=== PATIENT | female | born 1965 | race Caucasian/White ===

== ENCOUNTER 2016-06-13 20:09 | Emergency (ER) | payer OTHER ==
[2016-06-13 20:16] VITALS: BP 147/100; PULSE 89; TEMP 97.9; BMI 30.9
[2016-06-13 20:20] LABS: PH,URINE 5.5 (4.5-8); URINE APPEARANCE Cloudy; URINE BILIRUBIN Negative (NEGATIVE); URINE GLUCOSE (UA) Trace (NEGATIVE); URINE KETONE Trace (NEGATIVE); URINE NITRITE Positive (NEGATIVE); URINE PROTEIN Negative (NEGATIVE); URINE UROBILINOGEN 1.0 E.U/dl (0.2-1.0)
--- NOTE | 2016-06-13 20:25 | PDOC ---
History of Present Illness - History of Present Illness Initial Comments: 06/13/16 21:05 The patient is a 51 year old female with no past medical hx of who presents to the ED complaining of painful urination for two weeks. She notes she has associated foul smelling urine and hematuria. Patient states she has had these reoccurring symptoms her entire life, but they have been worse the past two weeks. She has no further complaints at this time. The patient denies daily medication. The patient denies any chest pain, SOB The patient denies any nausea, vomiting, diarrhea Social: denies any tobacco or alcohol use Allergies: Motrin (stomach pain) Surgery: Hysterectomy (5 years ago), cholecystectomy (10 years ago) PCP: N/A <Elizabeth Linares - Last Filed: 06/13/16 21:08> <Gildardo Vazquez - Last Filed: 06/13/16 21:23> - General Chief Complaint: Urinary Problem Stated Complaint: UTI Past History <Elizabeth Linares - Last Filed: 06/13/16 21:08> - Past Medical History Other medical history: DENIES - Psycho/Social/Smoking Cessation Hx Anxiety: No Suicidal Ideation: No Smoking History: Never smoked Hx Alcohol Use: No Drug/Substance Use Hx: No Substance Use Type: None <Gildardo Vazquez - Last Filed: 06/13/16 21:23> - Past Medical History Allergies/Adverse Reactions: Allergies Allergy/AdvReac Type Severity Reaction Status Date / Time ibuprofen AdvReac Nausea Verified 05/13/16 20:19 Home Medications: Ambulatory Orders Cefpodoxime Proxetil [Vantin (Nf) -] 100 mg PO BID #20 tablet 06/13/16 Phenazopyridine HCl [Pyridium] 200 mg PO TID #9 tablet 06/13/16 Review of Systems - Review of Systems Able to Perform ROS?: Yes ([place] [employer] ) Comments:: 06/13/16 21:07 GENERAL/CONSTITUTIONAL: No fever or chills. No weakness. HEAD, EYES, EARS, NOSE AND THROAT: No change in vision. No ear pain or discharge. No sore throat. CARDIOVASCULAR: No chest pain or shortness of breath. RESPIRATORY: No cough, wheezing, or hemoptysis. GASTROINTESTINAL: No nausea, vomiting, diarrhea or constipation. GENITOURINARY: + Dysuria, foul smelling urine, hematuria. MUSCULOSKELETAL: No joint or muscle swelling or pain. No neck or back pain. SKIN: No rash NEUROLOGIC: No headache, vertigo, loss of consciousness, or change in strength/ sensation. ENDOCRINE: No increased thirst. No abnormal weight change. HEMATOLOGIC/LYMPHATIC: No anemia, easy bleeding, or history of blood clots. ALLERGIC/IMMUNOLOGIC: No hives or skin allergy. <Elizabeth Linares - Last Filed: 06/13/16 21:08> *Physical Exam - Vital Signs Last Vital Signs Temp Pulse Resp BP Pulse Ox 97.9 F 89 16 147/100 98 06/13/16 20:15 06/13/16 20:15 06/13/16 20:15 06/13/16 20:15 06/13/16 20:15 - Physical Exam Comments: 06/13/16 21:07 GENERAL: Awake, alert, and fully oriented, in no acute distress HEAD: No signs of trauma EYES: PERRLA, EOMI, sclera anicteric, conjunctiva clear ENT: Auricles normal inspection, hearing grossly normal, nares patent, oropharynx clear without exudates. Moist mucosa NECK: Normal ROM, supple, no lymphadenopathy, JVD, or masses LUNGS: Breath sounds equal, clear to auscultation bilaterally. No wheezes, and no crackles HEART: Regular rate and rhythm, normal S1 and S2, no murmurs, rubs or gallops ABDOMEN: Soft, nontender, normoactive bowel sounds. No guarding, no rebound. No masses EXTREMITIES: Normal range of motion, no edema. No clubbing or cyanosis. No cords, erythema, or tenderness NEUROLOGICAL: Cranial nerves II through XII grossly intact. Normal speech, normal gait SKIN: Warm, Dry, normal turgor, no rashes or lesions noted. <Elizabeth Linares - Last Filed: 06/13/16 21:08> - Vital Signs Last Vital Signs Temp Pulse Resp BP Pulse Ox 97.9 F 89 16 147/100 98 06/13/16 20:15 06/13/16 20:15 06/13/16 20:15 06/13/16 20:15 06/13/16 20:15 <Gildardo Vazquez - Last Filed: 06/13/16 21:23> ED Treatment Course - ADDITIONAL ORDERS Additional order review: Laboratory Results 06/13/16 06/13/16 20:15 20:10 Urine Color [place] Urine Appearance Cloudy Urine pH 5.5 Ur Specific [place] 1.015 Urine Protein Negative Urine Glucose (UA) Trace Urine Ketones Trace Urine Blood Trace H Urine Nitrite Positive Urine Bilirubin Negative Urine Urobilinogen 1.0 e.u/dl Ur Leukocyte Esterase 3+ H Urine RBC 0-3 Urine WBC 20-30 Ur Epithelial Cells 2+ Urine Bacteria 2+ Urine HCG, Qual Negative <Elizabeth Linares - Last Filed: 06/13/16 21:08> *DC/Admit/Observation/Transfer - Attestations Scribe Attestion: 06/13/16 21:08 Documentation prepared by Elizabeth Linares, acting as medical technologist chief for Gildardo Vazquez MD/. <Elizabeth Linares - Last Filed: 06/13/16 21:08> - Discharge Dispostion Admit: No - Attestations Physician Attestion: 06/13/16 20:25 I, Dr. Gildardo Vazquez, attest that this document has been prepared under my direction and personally reviewed by me in its entirety. I further attest, that it accurately reflects all work, treatment, procedures and medical decision -making performed by me. <Gildardo Vazquez - Last Filed: 06/13/16 21:23> Diagnosis at time of Disposition: Urinary tract infection Qualifiers: Urinary tract infection type: acute cystitis Hematuria presence: with hematuria Qualified Code(s): N30.01 - Acute cystitis with hematuria - Discharge Dispostion Disposition: HOME Condition at time of disposition: Stable - Prescriptions Prescriptions: Phenazopyridine HCl [Pyridium] 200 mg PO TID #9 tablet Cefpodoxime Proxetil [Vantin (Nf) -] 100 mg PO BID #20 tablet - Patient Instructions Printed Discharge Instructions: DI for Urinary Tract Infection (UTI) Additional Instructions: It was a pleasure to care for you..... Hope you feel better soon. Diogo- Dr. Gildardo Vazquez Print Language: LAO
[2016-06-13 20:29] LABS: URINE BLOOD TRACE (NEGATIVE); URINE COLOR ORANGE; URINE LEUK ESTERASE 3+ (NEGATIVE)
[2016-06-13 20:38] LABS: URINE BACTERIA 2+ /hpf (NEGATIVE); URINE RBC 0-3 /hpf (0-3); URINE WBC 20-30 (3-5)
[2016-06-13] MEDS ORDERED: PHENAZOPYRIDINE HCL 100 MG TABLET (FP) PO ONE (21:16)
[2016-06-13] MEDS ORDERED: CEFPODOXIME PROXETIL 100 MG TABLET PO ONE (21:16)
[2016-06-13] MEDS ORDERED: PHENAZOPYRIDINE HCL 100 MG TABLET (FP) ONE (21:20)
[2016-06-13] MEDS ORDERED: CEPHALEXIN MONOHYDRATE 500 MG CAPSULE (UD) ONE (21:23)
[2016-06-13] MEDS ORDERED: CEPHALEXIN MONOHYDRATE 500 MG CAPSULE (UD) PO ONE (21:23)
== END 2016-06-13 21:33 | disposition home or self-care (01) ==
LOC: FER 20:09
DX: N30.01 Acute cystitis with hematuria (principal)
CPT/HCPCS: 81003; 81015; 84703; 87086; 87186; 99282-25

== ENCOUNTER 2017-05-07 16:25 | Emergency (ER) | payer OTHER ==
[2017-05-07 16:46] VITALS: BP 145/97; PULSE 83; TEMP 98.6; BMI 34.2
[2017-05-07 16:47] LABS: URINE BILIRUBIN Negative (NEGATIVE); URINE GLUCOSE (UA) Negative (NEGATIVE); URINE KETONE Negative (NEGATIVE); URINE NITRITE Negative (NEGATIVE); URINE PROTEIN Negative (NEGATIVE); URINE UROBILINOGEN 0.2 (0.2-1.0)
--- NOTE | 2017-05-07 16:47 | PDOC ---
History of Present Illness - General History Source: Patient - History of Present Illness Initial Comments: 05/07/17 16:54 The patient is a 51 year old female, with a significant past medical history of UTIs, who presents to the emergency department with, pain upon urination x1day. Patient reports the symptoms feel similar to previous UTIs experienced. She denies recent fevers, chills, headache or dizziness. She denies recent nausea, vomit, diarrhea or constipation. She denies recent frequency, urgency, foul smelling urine, or hematuria. She denies recent chest pain or shortness of breath. Allergies: Ibuprofen Past surgical history: Hysterectomy (5 years ago), cholecystectomy (10 years ago ) Social history: Nonsmoker. Denies EtOH use and recreational drug use. Primary Care Physician: Dr. Ignacio Alberto <Eleonora Mendez - Last Filed: 05/07/17 16:53> <Samira Bennett - Last Filed: 05/07/17 17:02> - General Chief Complaint: Urinary Problem Stated Complaint: PAIN ON URINATION Time Seen by Provider: 05/07/17 16:28 Past History <Eleonora Mendez - Last Filed: 05/07/17 16:53> - Past Medical History COPD: No Other medical history: DENIES - Surgical History Cholecystectomy: Yes - Suicide/Smoking/Psychosocial Hx Smoking History: Never smoked Have you smoked in the past 12 months: No Hx Alcohol Use: No Drug/Substance Use Hx: No Substance Use Type: None <Samira Bennett - Last Filed: 05/07/17 17:02> - Past Medical History Allergies/Adverse Reactions: Allergies Allergy/AdvReac Type Severity Reaction Status Date / Time ibuprofen AdvReac Nausea Verified 05/07/17 16:27 Home Medications: Ambulatory Orders Cephalexin Monohydrate [Keflex -] 500 mg PO BID #14 capsule 05/07/17 Review of Systems - Review of Systems Able to Perform ROS?: Yes Comments:: 05/07/17 16:54 GENERAL/CONSTITUTIONAL: No fever or chills. No weakness. HEAD, EYES, EARS, NOSE AND THROAT: No change in vision. No ear pain or discharge. No sore throat. CARDIOVASCULAR: No chest pain or shortness of breath. RESPIRATORY: No cough, wheezing, or hemoptysis. GASTROINTESTINAL: No nausea, vomiting, diarrhea or constipation. GENITOURINARY: +Pain upon urination. No frequency, or change in urination. MUSCULOSKELETAL: No joint or muscle swelling or pain. No neck or back pain. SKIN: No rash NEUROLOGIC: No headache, vertigo, loss of consciousness, or change in strength/ sensation. ENDOCRINE: No increased thirst. No abnormal weight change. HEMATOLOGIC/LYMPHATIC: No anemia, easy bleeding, or history of blood clots. ALLERGIC/IMMUNOLOGIC: No hives or skin allergy. All Other Systems: Reviewed and Negative <Eleonora Mendez - Last Filed: 05/07/17 16:53> *Physical Exam - Vital Signs Last Vital Signs Temp Pulse Resp BP Pulse Ox 98.6 F 83 18 145/97 96 05/07/17 16:25 05/07/17 16:25 05/07/17 16:25 05/07/17 16:25 05/07/17 16:25 - Physical Exam Comments: 05/07/17 16:54 GENERAL: Awake, alert, and fully oriented, in no acute distress HEAD: No signs of trauma EYES: PERRLA, EOMI, sclera anicteric, conjunctiva clear ENT: Auricles normal inspection, hearing grossly normal, nares patent, oropharynx clear without exudates. Moist mucosa NECK: Normal ROM, supple, no lymphadenopathy, JVD, or masses LUNGS: Breath sounds equal, clear to auscultation bilaterally. No wheezes, and no crackles HEART: Regular rate and rhythm, normal S1 and S2, no murmurs, rubs or gallops ABDOMEN: Soft, nontender, normoactive bowel sounds. No guarding, no rebound. No masses EXTREMITIES: Normal range of motion, no edema. No clubbing or cyanosis. No cords, erythema, or tenderness NEUROLOGICAL: Cranial nerves II through XII grossly intact. Normal speech, normal gait SKIN: Warm, Dry, normal turgor, no rashes or lesions noted. <DisahEleonora sim - Last Filed: 05/07/17 16:53> - Vital Signs Last Vital Signs Temp Pulse Resp BP Pulse Ox 98.6 F 83 18 145/97 96 05/07/17 16:25 05/07/17 16:25 05/07/17 16:25 05/07/17 16:25 05/07/17 16:25 <Samira Bennett - Last Filed: 05/07/17 17:02> ED Treatment Course - ADDITIONAL ORDERS Additional order review: Laboratory Results 05/07/17 16:30 Urine Color Yellow Urine Appearance Hazy Urine pH 6.0 Ur Specific [place] 1.015 Urine Protein Negative Urine Glucose (UA) Negative Urine Ketones Negative Urine Blood 2+ H Urine Nitrite Negative Urine Bilirubin Negative Urine Urobilinogen 0.2 Ur Leukocyte Esterase 3+ H <Eleonora Mendez - Last Filed: 05/07/17 16:53> Medical Decision Making - Medical Decision Making 05/07/17 17:02 Reviewed prior UCx results. Prior UTI was sensitive to cephalosporins. Will prescribe keflex. No signs of pyelonephritis. Stable for DC home. <Samira Bennett - Last Filed: 05/07/17 17:02> *DC/Admit/Observation/Transfer - Attestations Scribe Attestion: 05/07/17 16:55 Documentation prepared by Eleonora Mendez, acting as senior medical billing specialist for Samira Bennett MD. <Eleonora Mendez - Last Filed: 05/07/17 16:53> - Discharge Dispostion Admit: No <Samira Bennett - Last Filed: 05/07/17 17:02> Diagnosis at time of Disposition: UTI (urinary tract infection) Qualifiers: Urinary tract infection type: acute cystitis Hematuria presence: without hematuria Qualified Code(s): N30.00 - Acute cystitis without hematuria - Discharge Dispostion Disposition: HOME Condition at time of disposition: Stable - Prescriptions Prescriptions: Cephalexin Monohydrate [Keflex -] 500 mg PO BID #14 capsule - Referrals Referrals: Ignacio Alberto MD [Primary Care Provider] - - Patient Instructions - Post Discharge Activity
[2017-05-07 16:49] LABS: URINE APPEARANCE HAZY; URINE BLOOD 2+ (NEGATIVE); URINE COLOR YELLOW; URINE LEUK ESTERASE 3+ (NEGATIVE)
[2017-05-07 17:01] LABS: URINE BACTERIA FEW /hpf (NEGATIVE); URINE RBC 20-30 /hpf (0-3); URINE WBC 60-100 (0-5)
[2017-05-07] MEDS ORDERED: CEPHALEXIN MONOHYDRATE 500 MG CAPSULE (UD) PO ONE (17:01)
[2017-05-07] MEDS ORDERED: CEPHALEXIN MONOHYDRATE 500 MG CAPSULE (UD) ONE (17:10)
[2017-05-07] MEDS ORDERED: PHENAZOPYRIDINE HCL 100 MG TABLET (FP) ONE (17:14)
[2017-05-07] MEDS ORDERED: PHENAZOPYRIDINE HCL 100 MG TABLET (FP) PO ONE (17:14)
== END 2017-05-07 17:25 | disposition home or self-care (01) ==
LOC: SUPCPDRO 16:25 → FER 16:25
DX: N30.00 Acute cystitis without hematuria (principal); Z87.440 Personal history of urinary (tract) infections
CPT/HCPCS: 81003; 81015; 87086; 87186; 99283-25

== ENCOUNTER 2017-06-05 20:57 | Emergency (ER) | payer OTHER ==
[2017-06-05 21:10] VITALS: BP 134/88; PULSE 73; TEMP 98.3; BMI 31.7
--- NOTE | 2017-06-05 21:11 | PDOC ---
History of Present Illness - General History Source: Patient Exam Limitations: No Limitations - History of Present Illness Initial Comments: 06/05/17 21:45 The patient is a 52-year-old female, with a significant past medical history of UTI's, who presents to the ED with burning with urination for 3 the past three days. She denies any hematuria. She denies any back pain. She denies any nausea, vomiting, diarrhea, or abdominal pain. PAST MEDICAL HISTORY: no significant history PAST SURGICAL HISTORY: no significant history FAMILY HISTORY: no pertinent history HISTORY: Pt lives with family and is employed. MEDICATIONS: reviewed ALLERGIES: As per nursing notes Adult ROS General: No fevers or chills, no weakness, no weight loss HEENT: No change in vision. No sore throat,. No ear pain CardioVascular: No chest pain or shortness of breath Respiratory:No cough, or wheezing. Gastrointestinal: no nausea, vomiting, diarrhea or constipation, No rectal bleeding Genitourinary: (+)dysuria. No hematuria, or frequency Musculoskeletal: No joint or muscle pain or swelling Neurologic: No headache, vertigo, dizziness or loss of consciousness Psychiatric: nor depression Skin: No rashes or easy bruising Endocrine: no increased thirst or abnormal weight change Allergic: no skin or latex allergy All other systems reviewed and normal Basic PE GENERAL: The patient is awake, alert, and fully oriented, in no acute distress. HEAD: Normal with no signs of trauma. EYES: Pupils equal, round and reactive to light, extraocular movements intact, sclera anicteric, conjunctiva clear. EXTREMITIES: Normal range of motion, no edema. NEUROLOGICAL: Normal speech, normal gait. PSYCH: Normal mood, normal affect. SKIN: Warm, Dry, normal turgor, no rashes or lesions noted. <Jennifer Shankar - Last Filed: 06/05/17 21:45> - General History Source: Patient Exam Limitations: No Limitations - History of Present Illness Initial Comments: 06/05/17 22:13 A portion of this note was documented by scribe services under my direction. I have reviewed the details of the note, within reason, and agree with the documentation. The case summary and management plan written by me. Assessment and plan: This is a 52-year-old female who has a history of urinary tract infection in the past 2 comes in complaining of 3 days of urinary frequency and dysuria. Patient's urine is positive for urinary tract infection. Patient otherwise was without complaints had no complaints of back pain and flank pain or fevers. Patient is able to tolerate a by mouth dose was given Macrobid and Pyridium here and discharged with prescriptions <Erika Yang I - Last Filed: 06/05/17 22:15> - General Chief Complaint: Urinary Problem Stated Complaint: BURNING ON URINATION Time Seen by Provider: 06/05/17 21:00 Past History <Jennifer Shankar - Last Filed: 06/05/17 21:45> - Past Medical History COPD: No - Surgical History Cholecystectomy: Yes - Suicide/Smoking/Psychosocial Hx Smoking History: Never smoked Have you smoked in the past 12 months: No Information on smoking cessation initiated: No Hx Alcohol Use: No Drug/Substance Use Hx: No Substance Use Type: None <Erika Yang I - Last Filed: 06/05/17 22:15> - Past Medical History Allergies/Adverse Reactions: Allergies Allergy/AdvReac Type Severity Reaction Status Date / Time ibuprofen AdvReac Nausea Verified 06/05/17 21:00 Home Medications: Ambulatory Orders Nitrofurantoin Monohyd/M-Cryst [Macrobid -] 100 mg PO BID #14 capsule 06/05/17 Phenazopyridine HCl [Pyridium] 200 mg PO TID #6 tablet 06/05/17 Review of Systems - Review of Systems Able to Perform ROS?: Yes <Jennifer Shankar - Last Filed: 06/05/17 21:45> *Physical Exam - Vital Signs Last Vital Signs Temp Pulse Resp BP Pulse Ox 98.3 F 73 16 134/88 99 06/05/17 20:59 06/05/17 20:59 06/05/17 20:59 06/05/17 20:59 06/05/17 20:59 <Jennifer Shankar - Last Filed: 06/05/17 21:45> - Vital Signs Last Vital Signs Temp Pulse Resp BP Pulse Ox 98.3 F 73 16 134/88 99 06/05/17 20:59 06/05/17 20:59 06/05/17 20:59 06/05/17 20:59 06/05/17 20:59 <Erika Yang I - Last Filed: 06/05/17 22:15> ED Treatment Course - ADDITIONAL ORDERS Additional order review: Laboratory Results 06/05/17 20:59 Urine Color Yellow Urine Appearance Sl cloudy Urine pH 7.0 Ur Specific [place] 1.015 Urine Protein Negative Urine Glucose (UA) Negative Urine Ketones Negative Urine Blood Trace-intact H Urine Nitrite Negative Urine Bilirubin Negative Urine Urobilinogen 0.2 Ur Leukocyte Esterase 2+ H Urine RBC 2-5 Urine WBC 60-100 Ur Epithelial Cells Few Amorphous Urates Few Urine Bacteria Few Urine HCG, Qual Negative - Medications Given in the ED: ED Medications Discontinued Medications Generic Name Dose Route Start Last Admin Trade Name Gomezq PRN Reason Stop Dose Admin Nitrofurantoin Macrocrystals 100 mg 06/05/17 21:30 06/05/17 21:36 Macrodantin - PO 100 mg ONCE SUZY Administration Phenazopyridine HCl 200 mg 06/05/17 21:25 06/05/17 21:36 Pyridium - PO 06/05/17 21:26 200 mg ONCE ONE Administration <Jennifer Shankar - Last Filed: 06/05/17 21:45> *DC/Admit/Observation/Transfer - Attestations Scribe Attestion: 06/05/17 21:49 Documentation prepared by Jennifer Shankar, acting as medical administrator for Erika Yang MD. <Jennifer Shankar - Last Filed: 06/05/17 21:45> <Erika Yang I - Last Filed: 06/05/17 22:15> Diagnosis at time of Disposition: UTI (urinary tract infection) Qualifiers: Urinary tract infection type: acute cystitis Hematuria presence: without hematuria Qualified Code(s): N30.00 - Acute cystitis without hematuria - Discharge Dispostion Disposition: HOME Condition at time of disposition: Stable - Prescriptions Prescriptions: Nitrofurantoin Monohyd/M-Cryst [Macrobid -] 100 mg PO BID #14 capsule Phenazopyridine HCl [Pyridium] 200 mg PO TID #6 tablet - Patient Instructions Additional Instructions: Take Macrobid 1 tablet twice a day for 7 days for the infection. For the pain take Pyridium 1 tablet 3 times a day for the next 2 days. They Pyridium will turn your urine bright orange. Return to the emergency department immediately with ANY new, persistent or worsening symptoms. Continue any medications as previously prescribed by your physician. You should follow up with your primary doctor as soon as possible regarding today's emergency department visit. . Please make sure your doctor reviews the results of your emergency evaluation. Thank you for coming to the Emergency Department today for your care. It was a pleasure to see you today. Please note that your evaluation is INCOMPLETE until you follow-up with your doctor.
[2017-06-05 21:14] LABS: URINE BILIRUBIN Negative (NEGATIVE); URINE GLUCOSE (UA) Negative (NEGATIVE); URINE KETONE Negative (NEGATIVE); URINE NITRITE Negative (NEGATIVE); URINE PROTEIN Negative (NEGATIVE); URINE UROBILINOGEN 0.2 (0.2-1.0)
[2017-06-05 21:16] LABS: URINE APPEARANCE SL CLOUDY; URINE BLOOD Trace-intact (NEGATIVE); URINE COLOR YELLOW; URINE LEUK ESTERASE 2+ (NEGATIVE)
[2017-06-05] MEDS ORDERED: PHENAZOPYRIDINE HCL 100 MG TABLET (FP) PO ONE (21:25)
[2017-06-05 21:28] LABS: URINE BACTERIA FEW /hpf (NEGATIVE); URINE WBC 60-100 (0-5)
[2017-06-05] MEDS ORDERED: NITROFURANTOIN MACROCRYSTAL 50 MG CAPSULE (FP) PO SCH (21:30)
[2017-06-05] MEDS ORDERED: PHENAZOPYRIDINE HCL 100 MG TABLET (FP) ONE (21:33)
[2017-06-05] MEDS ORDERED: NITROFURANTOIN MACROCRYSTAL 50 MG CAPSULE (FP) ONE (21:33)
== END 2017-06-05 21:39 | disposition home or self-care (01) ==
LOC: FER 20:57
DX: N30.00 Acute cystitis without hematuria (principal)
CPT/HCPCS: 81003; 81015; 84703; 87086; 99282-25

== ENCOUNTER 2022-12-07 10:58 | Emergency (ER) | payer OTHER ==
[2022-12-07 11:13] VITALS: BP 117/84; PULSE 100; RESP 18; TEMP 98.4; BMI 29.2
[2022-12-07] MEDS ORDERED: KETOROLAC TROMETHAMINE 60 MG/2 ML VIAL IM ONE (12:09)
[2022-12-07] MEDS ORDERED: KETOROLAC TROMETHAMINE 60 MG/2 ML VIAL ONE (12:12)
== END 2022-12-07 12:43 | disposition home or self-care (01) ==
LOC: FER 10:58
PROC: 3E0233Z Introduction of Anti-inflammatory into Muscle, Percutaneous Approach (ICD-10-PCS; principal; 2022-12-07)
DX: M25.512 Pain in left shoulder (principal); M75.82 Other shoulder lesions, left shoulder
CPT/HCPCS: 73030-TC-LT-FY; 99284-25